=== PATIENT | female | born 1975 | race Caucasian/White ===

== ENCOUNTER 2022-03-31 13:24 | Outpatient (REF) | payer OTHER, SELFPAY ==
--- NOTE | ~2022-03-31 | XR_ITS ---
EXAMINATION: XR SACROILIAC JOINTS CLINICAL INFORMATION: Pain COMPARISON: None TECHNIQUE: 3 views of the sacroiliac joints FINDINGS: Bones and soft tissues are normal. No fracture. Alignment is anatomic. Sacroiliac joint spaces are well-maintained without erosions or surrounding sclerosis. XR/XR sacroiliac joint min 3V IMPRESSION: Normal sacroiliac joints.
--- NOTE | ~2022-03-31 | XR_ITS ---
EXAMINATION: XR HIP, LEFT CLINICAL INFORMATION: Pain COMPARISON: None TECHNIQUE: Two views of the left hip. FINDINGS: Bones and soft tissues are normal. No fracture. Alignment is anatomic. Hip joint space is maintained. XR/XR hip LT w PEL1V IMPRESSION: Normal left hip.
== END 2022-03-31 13:25 | disposition home or self-care (01) ==
LOC: HO.XRAY 13:24
PROVIDERS: PCP Internal Medicine; Visit Provider Nurse Practitioner Family
DX: M46.1 Sacroiliitis, not elsewhere classified (principal); M53.3 Sacrococcygeal disorders, not elsewhere classified; M25.552 Pain in left hip
CPT/HCPCS: 72202; 73502

== ENCOUNTER 2022-12-08 12:31 | Emergency (ER) | payer OTHER, SELFPAY ==
--- NOTE | ~2022-12-08 | XR_ITS ---
EXAMINATION: XR CHEST CLINICAL INFORMATION: Chest pain COMPARISON: None available. TECHNIQUE: 2 views of the chest were obtained. FINDINGS: No significant abnormality is noted involving the heart, lungs, mediastinum, bony thorax or soft tissues. XR/XR chest 2V IMPRESSION: Unremarkable examination.
--- NOTE | 2022-12-08 12:33 | ECG_ITS ---
Test Reason : chest pain Blood Pressure : / mmHG Vent. Rate : 083 BPM Atrial Rate : 083 BPM P-R Int : 146 ms QRS Dur : 076 ms QT Int : 370 ms P-R-T Axes : 031 -08 -08 degrees QTc Int : 434 ms Normal sinus rhythm with sinus arrhythmia Minimal voltage criteria for LVH, may be normal variant ( R in aVL ) Borderline ECG No previous ECGs available Referred By: Deandra Caicedo Electronically Signed By:Curt Alas
[2022-12-08 12:42] VITALS: BP 151/87; PULSE 90; RESP 18; TEMP 36.5; O2SAT 99; BMI 36.4
--- NOTE | 2022-12-08 12:42 | ED_ITS ---
HPI - Chest Pain General Chief Complaint: General Medical Stated Complaint: chest pain, right arm numbness Time Seen by Provider: 12/08/22 17:38 Source: patient Mode of arrival: ambulatory Limitations: no limitations History of Present Illness HPI narrative: Patient comes to the emergency room complaining of left-sided hip pain and also complaining of right-sided chest pain radiating to the arm. Patient states it started approximately 20 hours ago. Patient denies any injury. Patient states that yesterday she had a sudden onset of sharp chest pain on the right side. Patient states she thought that she broke her report she was cooking dinner. Since then, patient has been having the pain on the right side. Related Data Home Medications Medication Instructions Recorded Confirmed ibuprofen 200 mg tablet 400 mg PO Q8H PRN 12/17/21 03/31/22 Previous Rx's Medication Instructions Recorded diclofenac potassium 50 mg tablet 50 mg PO BID PRN pain 30 days #60 03/31/22 tabs tizanidine 4 mg tablet 4 mg PO BID PRN for muscle spasm 04/23/22 #60 tabs Allergies Allergy/AdvReac Type Severity Reaction Status Date / Time No Known Allergies Allergy Verified 04/20/22 08:35 Review of Systems Review of Systems: Constitutional : No Weight loss, No Fever, No Chills, No Night Sweats, No Fatigue, No Malaise ENT/Mouth : No Hearing loss, No Ear Pain, No Nasal Congestion, No Sinus Pain, No Hoarseness, No sore throat, No Rhinorrhea, No Swallowing Difficulty Eyes: No Eye Pain, No Swelling, No Redness, No Foreign Body, No Discharge, No Vision Changes Cardiovascular : Complaining of right-sided intercostal pain,No SOB, No Dyspnea on Exertion, No Orthopnea, No Edema, No Palpitations Respiratory : No Cough, No Sputum, No Wheezing, No Smoke Exposure, No Dyspnea Gastrointestinal : No Nausea, No Vomiting, No Diarrhea, No Constipation, No abdominal Pain, No Hematochezia, No Melena Genitourinary : no irregular bleeding, No Dysuria, No Urinary Frequency, No Hematuria, No Urinary Incontinence, No Urgency, No Flank Pain, No Urinary Flow Changes, No Hesitancy Musculoskeletal : Complaining of chronic left solid hip pain, No Myalgias, No Joint Swelling Skin : No Skin Lesions, No rash Neuro : No Weakness, No Numbness, No Paresthesias, No Loss of Consciousness, No Dizziness, No Headache Psych : No Anxiety/Panic, No Depression, No SI/HI/AH/VH, No Social Issues, Heme/Lymph: No Bruising, No Bleeding,No Lymphadenopathy Endocrine : No Polyuria, No Polydipsia, No Temperature Intolerance [facility] Social History Social History (Updated 04/20/22 @ 08:36 by GIAN Ward) Alcohol intake: current Alcohol intake frequency: holidays/special occasions only Patient Tobacco Use Status: Never used Tobacco Physical Exam Vital Signs: Vital Signs: Last Vital Signs Temp 97.7 F 12/08/22 12:42 Pulse 90 12/08/22 12:42 Resp 18 12/08/22 12:42 BP 151/87 H 12/08/22 12:42 Pulse Ox 99 12/08/22 12:42 O2 Del Method Room Air 12/08/22 12:42 BMI result Body Mass Index 36.4 Const: Other: Appearance: Alert. Oriented X3. No acute distress. Eyes: Pupils equal, round and reactive to light. ENT: Pharynx normal. Neck: Normal inspection. Neck supple. No lymph nodes noted. No crepitus CVS: Normal heart rate and rhythm. Pulses normal. Normal S1 and S2 Respiratory: No respiratory distress. Breath sounds normal. No Wheezing. No rales Abdomen: Soft and nontender. No rigidity. No distention. Skin: Skin warm and dry. Normal skin color. Normal skin turgor. Extremities: No lower extremity edema. No Lacerations. No Rash Neuro: Oriented X 3. No motor deficit. No sensory deficit. Moving all extremities. No slurred speech. CN 2 through 12 grossly intact Psych: calm, cooperative, normal affect Course Course Course Narrative: This is a rapid medical exam. deferred additional HPI, ROS, PE to primary provider. 47 yo female with history of back pain here with complaints of right chest pain, pleuritic in nature with numbness/discomfort in the right arm since yesterday. NO SOB, no leg pain/swelling, fevers. NO recent travel, no recent surgery, no HRT/estrogen use. No personal or family history of DVT/PE. WIll obtain EKG, CXR, labs. VSS Medical Decision Making Medical Decision Making MDM Narrative: -initially when patient came in, patient stated that she had chest pain radiating towards the right arm, observe patient was considered. -my interpretation of EKG: Normal sinus rhythm, heart rate 83, Mrs. Segment depression or elevation, nonspecific T-wave inversion in lead 3, QTC 434 -troponin 1. Is negative, patient has been symptomatic for 20+ hours, chest pain unlikely to be of cardiac etiology, most likely musculoskeletal. -patient had mild reproducible chest pain on palpation on the right side. -patient requesting something stronger than ibuprofen but not on narcotic for the pain. Patient given 1 dose of IM Toradol for costochondritis -I discussed with the patient that if she keeps having chest pain, she can follow up with the primary care physician and be referred for a cardiac stress test Differential Diagnosis Differential Diagnoses: The differential diagnosis associated with the presentation includes (ACS, musculoskeletal pain, costochondritis) Admission/Observation Consideration of admission/observation: Escalation of care including admission/observation considered Lab Data MDM Lab Attestation statement: I reviewed the patient's lab results. 12/08/22 14:25 12/08/22 14:25 Labs: Lab Results 12/08/22 12/08/22 12/08/22 Range/Units 14:25 14:25 14:25 WBC 8.8 (4.8-10.8) X10*3/uL RBC 4.84 (4.20-5.50) X10*6/uL Hgb 13.3 (12.0-16.0) g/dl Hct 40.5 (37.0-47.0) % MCV 83.7 (80.0-98.0) fL MCH 27.5 (27.0-33.0) pg MCHC 32.8 (31.0-35.0) g/dl RDW 12.9 (11.0-16.0) % Plt Count 265 (160-400) X10*3/uL MPV 10.1 (9.4-12.3) fL Immature Gran % (Auto) 0.6 H (0.0-0.4) % Neut % (Auto) 59.9 (45-73) % Lymph % (Auto) 28.0 (20-40) % Hemphill % (Auto) 7.8 (2-11) % Eos % (Auto) 3.4 (0-4) % Baso % (Auto) 0.3 (0-2) % Lymph # (Auto) 2.5 (1.2-4.9) X10*3/uL Hemphill # (Auto) 0.7 (0.1-1.2) X10*3/uL Eos # (Auto) 0.3 (0.0-0.4) X10*3/uL Baso # (Auto) 0.0 (0.0-0.2) X10*3/uL Abs Immat Gran (auto) 0.05 H (0.00-0.03) X10*3/uL Absolute Neuts (auto) 5.3 (2.0-8.3) x10*3/uL Absolute Nucleated RBC 0.000 (0.0-0.012) X10*3/uL Nucleated RBC % (auto) 0.0 (0.0-0.2) /100WBC PT 11.9 (10.0-13.1) SEC INR 1.0 (0.9-1.1) Sodium 140 (135-145) mmol/L Potassium 4.3 (3.3-5.1) mmol/L Chloride 109 H (96-108) mmol/L Carbon Dioxide 24 (22-29) mmol/L Anion Gap 11 L (12-20) BUN 14 (9-16) mg/dL Creatinine 0.61 (0.5-1.4) mg/dL Estim Creat Clear Calc 104.3 Estimated GFR > 60 Random Glucose 115 (60-115) mg/dL Calcium 9.2 (8.4-10.2) mg/dL Total Bilirubin 0.5 (0.0-1.0) mg/dL Direct Bilirubin 0.2 (0.0-0.5) mg/dL AST 12 (5-31) U/L ALT 15 (0-31) U/L Alkaline Phosphatase 68 (39-117) U/L Troponin I High Sens (<3.5-17.0) ng/L Total Protein 6.9 (6.5-8.0) g/dL Albumin 4.1 (3.5-5.0) g/dL 12/08/22 Range/Units 14:25 WBC (4.8-10.8) X10*3/uL RBC (4.20-5.50) X10*6/uL Hgb (12.0-16.0) g/dl Hct (37.0-47.0) % MCV (80.0-98.0) fL MCH (27.0-33.0) pg MCHC (31.0-35.0) g/dl RDW (11.0-16.0) % Plt Count (160-400) X10*3/uL MPV (9.4-12.3) fL Immature Gran % (Auto) (0.0-0.4) % Neut % (Auto) (45-73) % Lymph % (Auto) (20-40) % Hemphill % (Auto) (2-11) % Eos % (Auto) (0-4) % Baso % (Auto) (0-2) % Lymph # (Auto) (1.2-4.9) X10*3/uL Hemphill # (Auto) (0.1-1.2) X10*3/uL Eos # (Auto) (0.0-0.4) X10*3/uL Baso # (Auto) (0.0-0.2) X10*3/uL Abs Immat Gran (auto) (0.00-0.03) X10*3/uL Absolute Neuts (auto) (2.0-8.3) x10*3/uL Absolute Nucleated RBC (0.0-0.012) X10*3/uL Nucleated RBC % (auto) (0.0-0.2) /100WBC PT (10.0-13.1) SEC INR (0.9-1.1) Sodium (135-145) mmol/L Potassium (3.3-5.1) mmol/L Chloride (96-108) mmol/L Carbon Dioxide (22-29) mmol/L Anion Gap (12-20) BUN (9-16) mg/dL Creatinine (0.5-1.4) mg/dL Estim Creat Clear Calc Estimated GFR Random Glucose (60-115) mg/dL Calcium (8.4-10.2) mg/dL Total Bilirubin (0.0-1.0) mg/dL Direct Bilirubin (0.0-0.5) mg/dL AST (5-31) U/L ALT (0-31) U/L Alkaline Phosphatase (39-117) U/L Troponin I High Sens < 2.7 (<3.5-17.0) ng/L Total Protein (6.5-8.0) g/dL Albumin (3.5-5.0) g/dL Independent Interpretation I performed an independent interpretation of an: Plain X-Ray (My interpretation of chest x-ray: No pneumonia,No fracture ribs) Radiology Impression Discussion of test interpretation with radiology: I have reviewed the rad iologist's reading. Radiologist Impression: FINDINGS: No significant abnormality is noted involving the heart, lungs, mediastinum, bony thorax or soft tissues. XR/XR chest 2V IMPRESSION: Unremarkable examination. Critical Care Time Critical Care Time Critical Care Time: Yes Total Critical Care Time: 30 Attestation: I have personally provided critical care time. Time includes review of lab data, radiology results, discussion with consultants, and monitoring for potential decompensation. Intervention performed as documented. Discharge Plan Discharge Clinical Impression: Atypical chest pain Patient Disposition: Home, Self-Care Instructions: Chest Pain (ED) Additional Instructions: Please follow-up with your primary care physician tomorrow. If you have any worsening or new symptoms, please return to the emergency room or call 911 Prescriptions: No Action tizanidine 4 mg tablet 4 mg PO BID PRN (Reason: for muscle spasm) Qty: 60 0RF diclofenac potassium 50 mg tablet 50 mg PO BID PRN (Reason: pain) 30 Days Qty: 60 0RF Rx Instructions: Take it with food. Avoid other NSAIDs. ibuprofen 200 mg tablet 400 mg PO Q8H PRN
[2022-12-08 14:29] LABS: MANUAL DIFF FLAG NO
[2022-12-08 14:37] LABS: Basophils Percent Auto 0.3 % (0-2); Eosinophils Absolute Auto 0.3 X10*3/uL (0.0-0.4); Eosinophils Percent Auto 3.4 % (0-4); Hematocrit 40.5 % (37.0-47.0); Hemoglobin 13.3 g/dl (12.0-16.0); Imm Gran Abs Auto 0.05 X10*3/uL (0.00-0.03); Imm Gran Pct Auto 0.6 % (0.0-0.4); Lymphocytes Absolute Auto 2.5 X10*3/uL (1.2-4.9); Mean Corpuscular HGB Conc 32.8 g/dl (31.0-35.0); Mean Corpuscular Hemoglobin 27.5 pg (27.0-33.0); Mean Corpuscular Volume 83.7 fL (80.0-98.0); Mean Platelet Volume 10.1 fL (9.4-12.3); Monocytes Absolute Auto 0.7 X10*3/uL (0.1-1.2); Monocytes Percent Auto 7.8 % (2-11); Neutrophils Absolute Auto 5.3 x10*3/uL (2.0-8.3); Neutrophils Percent Auto 59.9 % (45-73); Platelet Count 265 X10*3/uL (160-400); Red Blood Count 4.84 X10*6/uL (4.20-5.50); Red Cell Distribution Width 12.9 % (11.0-16.0); White Blood Count 8.8 X10*3/uL (4.8-10.8)
[2022-12-08 14:39] LABS: Prothrombin Time 11.9 SEC (10.0-13.1)
[2022-12-08 14:47] LABS: Alanine Aminotransferase 15 U/L (0-31); Albumin Level 4.1 g/dL (3.5-5.0); Alkaline Phosphatase 68 U/L (39-117); Anion Gap 11 (12-20); Aspartate Amino Transferase 12 U/L (5-31); Bilirubin Direct 0.2 mg/dL (0.0-0.5); Bilirubin Total 0.5 mg/dL (0.0-1.0); Blood Urea Nitrogen 14 mg/dL (9-16); Calcium 9.2 mg/dL (8.4-10.2); Carbon Dioxide 24 mmol/L (22-29); Chloride 109 mmol/L (96-108); Creatinine Clr Calc Pharmacy 104.3; Estimated Glomerular Filt Rate > 60; Glucose Random 115 mg/dL (60-115); Potassium 4.3 mmol/L (3.3-5.1); Sodium 140 mmol/L (135-145); Total Protein 6.9 g/dL (6.5-8.0)
[2022-12-08 14:55] LABS: Troponin-I High Sensitivity < 2.7 ng/L (<3.5-17.0)
[2022-12-08] MEDS: Ketorolac Tromethamine 30 MG/ML VIAL IM (19:24)
== END 2022-12-08 20:06 | disposition home or self-care (01) ==
PROVIDERS: Nurse Practitioner Family; Emergency Provider Emergency Medicine; PCP Internal Medicine
DX: R07.89 Other chest pain (principal); M25.552 Pain in left hip; R20.0 Anesthesia of skin; M25.511 Pain in right shoulder; Z79.899 Other long term (current) drug therapy
CPT/HCPCS: 36415; 71046; 80048; 80076; 84484; 85025; 85610; 93005; 96372; 99284; J1885

== ENCOUNTER → 2022-12-08 12:33 | Outpatient (BNV) | payer OTHER, SELFPAY | PROVIDERS: Emergency Provider Emergency Medicine; PCP Internal Medicine; Visit Provider Internal Medicine Cardiovascular Disease | DX: I49.9 Cardiac arrhythmia, unspecified (principal) | CPT/HCPCS: 93010 ==

== ENCOUNTER 2023-01-29 14:35 | Outpatient (AMB) | payer OTHER, SELFPAY ==
--- NOTE | 2023-01-29 14:37 | MHC.OFFVIS ---
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 She was last seen in our office in March 2022. Patient continues to endorse left sided low back pain that wraps around her left buttock and into left lateral hip and occasionally into her groin. Pain increases with wtih walking, changing positions, bending, twisting, movements, prolonged sitting. She cannot sleep on her left side due to pain. Occasionally she will get burning and tingling down her left lateral leg as well. Patient reports she recently completed lumbar spine MRI at [facility], report is noted below and had neurosurgical evaluation with Dr. Romero and Irlanda Dowell PA-C at [facility] and was recommended to undergo left sacroiliac joint or left facet injection. Patient reports she is hesitant towards interventional treatments but due to chronic and worsening pain she is willing to undergo left SIJ injection. Patient has completed multiple rounds of physical therapy, chiropractic adjustments and performs daily HEP with stretching. Patient reports she is seeing district extension service agent now and has completed 4 sessions of acupuncture with temporary and minimal improvement in her symptoms. She also tried gabapentin and tizanidine but had to stop due to insomnia with gabapentin and no effect with muscle relaxant. She continues to take Ibuprofen and states this has been minimally helpful. She has stopped taking diclofenac potassium as this has been ineffective. Denies any fever, chills, abdominal or groin pain, bowel dysfunction or saddle anesthesia. Patient reports history of urinary incontinence and follows her ObGyn provider with discussion of a PV sling procedure to lift her bladder. PRIOR: Patient presents today via telehealth encounter to discuss xray results and response to medications. Patient continues to endorse left sided lower back pain with radiation to her left lateral hip and left buttock. Denies groin pain. She states prolonged sitting and sitting and some of the sleeping positions. Patient reports she is able to sleep better with tizanidine at night without noted side effects. She also reports partial pain relief with diclofenac sodium and has been taking it with good tolerance without side effects. Xray results for left hip and SIJ were normal. However, patient had positive testing with 3-4 provocative maneuvers with previous office visits. Patient was rescheduled for diagnostic SIJ injection which was denied again. Peer to Peer Review was conducted on 04/09/[address] Cervantes and left diagnostic SIJ injection was approved. Reference #[id number]. PRIOR: Patient returns today for follow up for worsening of left sided lower back pain. She was initially seen by Tonia ESCAMILLA in November and was scheduled for diagnostic SIJ injection which unfortunately has been denied. Patient continues to endorse low back pain that travels in her left upper buttock and into left groin and intermittently into her left lower extremity laterally and anteriorly up to the knee level. She reports numbness and tingling in her left lateral leg, groin and rarely in her left foot. Patient reports she has a pending neurosurgical evaluation by Dr. Welsh at [facility] in May,. She reports her pain is increased with daily activities, prolonged walking, sexual activity, or laying on her back. Patient reports she continues to have difficulty to properly care for herself and cannot wipe herself properly after bowel movements due to pain exacerbation with bending forward and twisting. She is concerned about her weight gain due to decreased daily activities and pain. On exam today, patient has significant exacerbation of left sacroiliac joint pain. She has negative SLR bilaterally and only reports mild stretching discomfort with dorsiflexion on the left. Patient is interested to proceed with diagnostic left SIJ injection for potential longer term pain relief, including therapeutic injections, neuromodulation and RFA procedures. Patient denies any fever, abdominal pain, dizziness, weakness, bowel or bladder incontinence or saddle anesthesia. PRIOR 12/17/21 Tonia ESCAMILLA: Fouzia a pleasant 46 year old female who presents today to the office today with complaints of low back pain. She states the pain started 5-7 years ago without any inciting events and has progressively worsened over the past two years. She reports the pain starts in the left side of her low back and radiates into the left hip/groin with intermittent numbness. She also reports occasional radiation down LLE into foot with associated pins/needles sensation. Although the symptoms are always on the left, she does report intermittent symptoms of right sided lower back pain. She denies any weakness, bowel/bladder dysfunction. She was referred to [facility] who offered some type of injection but patient declined at the time. She recently had a lumbar spine MRI, report scanned into chart. No evidence of nerve root impingement, overt foraminal/central canal stenosis, but there was a disc protrusion with abutment of the left L4 nerve root. She reports pain onset was gradual, constant and rates the pain a 5-8/10. She states the pain is interfering with sleep, activities of daily living and they cannot function normally. The patient reports the pain in terms of tissue damage as throbbing, jumping, stabbing, cramping, burning as well as heavy, tiring and radiating. The pain is exacerbated by prolonged sitting,standing as well as activity. She notes relief with recumbency. She has been taking ibuprofen with partial relief. She has also tried tizanidine, naprosyn, heat/ice and tylenol with minimal effect. With the worsening of her pain she reports weight gain due to limitations with activity. She was previously very active at the gym as well as using medical weight management, losing a total of 30 lbs. Unfortunately, due to her pain she gained the weight back despite continuing with yoga/pilates like exercises. She has attempted chiropractic manipulation as well as physical therapy and massage in the past with partial alleviation in symptoms. Denies any acupuncture. Denies any previous back injections or surgery. Her past medical history is significant for hyperlipidemia and vitamin D deficiency. [facility] Social History Alcohol intake: current Alcohol intake frequency: holidays/special occasions only Patient Tobacco Use Status: Never used Tobacco Review of Systems Const All systems reviewed & are unremarkable except as noted in HPI and below Physical Exam Vital Signs: Last Vital Signs Pulse 79 01/29/23 14:43 BP 138/64 01/29/23 14:43 Pulse Ox 100 01/29/23 14:43 Oxygen Delivery Method Room Air 01/29/23 14:43 BMI result Body Mass Index 36.8 General: Appears afebrile. Alert and oriented. Mood and affect appropriate. Follows and participates in conversation appropriately. Respiratory effort is unlabored. Able to transition from sit to stand unassisted. Ambulates with bilaterally normal heel strike and toe off. Back/Spine/Pelvis Other: Mildly antalgic gait without limping. Can flex forward to 65-75degrees and extend to 5-10 degrees before experiencing lumbar pain. Increased pain with lumbar extension. Demonstrates 5/5 strength of quadriceps bilaterally as well as flexion/dorsiflexion of bilateral feet against resistance. 2+ pedal pulses bilaterally. Straight leg rise with dorsiflexion negative bilaterally. +2 DTR intact and symmetrical. Naif's positive bilaterally. Babar test, Stinchfield test, Gaenslen, Pelvic compression test are positive on the left. Facet loading test negative bilaterally. Mild left groin pain with left hip I/E rotation. No tenderness in GTB bilaterally. Valsalva maneuver negative. No clonus. Cervical Spine: cervical ROM normal and No Cervical spine tenderness Thoracic/Lumbar Spine: thoracic and lumbar spine normal to inspection, No Thoracic/lumbar spine scar(s), Lasegue's sign negative, straight leg raise negative bilaterally, pain with thoraco-lumbar ROM, paraspinal muscle tenderness, No thoracic spinal tenderness and lumbar spinal tenderness (L4-S1) Pelvis: buttock tenderness on the left Sacroiliac joints: on the right nontender and on the left tender to palpation Results Reviewed Results Reviewed: MR LUMBAR SPINE WITHOUT CONTRAST 12/23/22 CLINICAL INFORMATION: Sciatica. FINDINGS: There is grade 1 degenerative anterolisthesis of L4 on L5. Lumbar alignment is otherwise maintained. There is no bone marrow edema. There are no acute fractures. Vertebral body heights are preserved. There is disc desiccation at the L1-L2 and L4-L5 levels. Conus terminates at the L1 level. There are no significant extraspinal soft tissue findings. The L1-L2, L2-L3, and L3-L4 disc contours are normal. There is no central canal stenosis and there is no foraminal stenosis at these levels. L4-L5: Grade 1 degenerative anterolisthesis. Severe bilateral facet arthropathy and ligamentum flavum thickening. Findings in concert result in mild central canal stenosis and left subarticular zone stenosis with mass effect on the traversing left L5 nerve root. Small degenerative cyst within the left L5 superior articular process. Mild bilateral foraminal encroachment. Right lateral annular fissure. There is some haziness within the left neural foraminal fat at L4-L5 on sagittal image 6 of series 6 that could reflect inflammation or disc material, partially inseparable from the exiting left L4 nerve root. L5-S1: Small annular disc bulge and mild bilateral facet arthropathy. No central canal stenosis and no foraminal stenosis. Right lateral annular fissure. IMPRESSION: - At L4-L5, there is grade 1 degenerative anterolisthesis in the setting of advanced bilateral facet arthropathy that along with additional multifactorial degenerative changes result in mild central canal stenosis and left subarticular zone stenosis with mass effect on the traversing left L5 nerve root. There is some haziness within the left neural foraminal fat at L4-L5 on sagittal image 6 of series 6 that could reflect inflammation or disc material, partially inseparable from the exiting left L4 nerve root. - There are right lateral annular fissures at L4-L5 and L5-S1. Assessment & Plan Assessment & Plan (1) Sacroiliitis: Code(s): M46.1 - Sacroiliitis, not elsewhere classified (2) Sacroiliac joint pain: Code(s): M53.3 - Sacrococcygeal disorders, not elsewhere classified (3) Degeneration of L4-L5 intervertebral disc: Code(s): M51.36 - Other intervertebral disc degeneration, lumbar region (4) Facet arthropathy, lumbosacral: Code(s): M47.817 - Spondylosis without myelopathy or radiculopathy, lumbosacral region (5) Muscle spasm: Code(s): M62.838 - Other muscle spasm Plan Proceed with Diagnostic Left Sacroiliac Joint injection with local and fluoroscopy as previously planned. If SIJ injection provides her no pain relief, will plan for diagnostic left L3-L4 DR L5 MBB as next steps. Script provided for Meloxicam, patient will stop Ibuprofen and diclofenac potassium. Monitor for any side effects. Patient is aware to take meloxicam as needed only and with food and full glass of water. Continue acupuncture, daily stretching exercises, weight loss, and good posture. All questions and concerns have been answered and patient agreed with the plan. Follow up after injections and sooner if needed. Anticoagulation: Patient not on anticoagulant Justification for interventional therapy: ? Patient with average pain > 6/10 ? Patient has exhausted conservative therapy, NSAIDs, physical therapy, chiropractic manipulation, acupuncture, HEP The risks, consequences, alternatives, and benefits of various treatment options were discussed with the patient in great detail, including conservative management, injections and procedures. Medications: New meloxicam Take it with food and full glass of water. Avoid other NSAIDs. 15 mg PO DAILY 30 tabs 0RF pain M46.1 - Sacroiliitis, not elsewhere classified, M47.817 - Spondylosis without myelopathy or radiculopathy, lumbosacral region, M51.36 - Other intervertebral disc degeneration, lumbar region, M53.3 - Sacrococcygeal disorders, not elsewhere classified Discontinued diclofenac potassium Take it with food. Avoid other NSAIDs. Discontinued Reason: Patient Completed Course 50 mg PO BID 30 days PRN 60 tabs 0RF pain M46.1 - Sacroiliitis, not elsewhere classified, M53.3 - Sacrococcygeal disorders, not elsewhere classified, M54.16 - Radiculopathy, lumbar region tizanidine Discontinued Reason: Patient no longer taking 4 mg PO BID PRN 60 tabs 0RF for muscle spasm M51.36 - Other intervertebral disc degeneration, lumbar region, M62.838 - Other muscle spasm Coding Level of Care Code Est Pt Level 4 (73526) Diagnoses Sacroiliitis M46.1 Sacroiliac joint pain M53.3 Degeneration of L4-L5 intervertebral disc M51.36 Facet arthropathy, lumbosacral M47.817 Muscle spasm M62.838
[2023-01-29 14:43] VITALS: BP 138/64; PULSE 79; O2SAT 100; BMI 36.8
== END 2023-01-29 15:02 | disposition home or self-care (01) ==
PROVIDERS: PCP Internal Medicine; Visit Provider Nurse Practitioner Family
DX: M46.1 Sacroiliitis, not elsewhere classified (principal); M53.3 Sacrococcygeal disorders, not elsewhere classified; M51.36 Other intervertebral disc degeneration, lumbar region; M47.817 Spondylosis without myelopathy or radiculopathy, lumbosacral region; M62.838 Other muscle spasm
CPT/HCPCS: 99214

== ENCOUNTER → 2023-01-29 14:35 | Outpatient (BNVA) | payer OTHER, SELFPAY | PROVIDERS: PCP Internal Medicine; Visit Provider Nurse Practitioner Family ==

== ENCOUNTER 2023-02-16 05:59 | Outpatient (REF) | payer OTHER, SELFPAY ==
--- NOTE | ~2023-02-16 | FL_ITS ---
EXAMINATION: XR FLUOROSCOPY WITH IMAGES CLINICAL INFORMATION: Sacrococcygeal disorders, not elsewhere classified. Left SI joint. COMPARISON: None available. TECHNIQUE: Fluoroscopy Supervised By: Dr. Vish Layne. Fluoroscopy Time: 0.1 minute. Cumulative Dose: 2.10 mGy. DAP: 0.0364 Gycm2. Images: 1. FINDINGS: Images demonstrate needle placement and contrast injection of the left sacroiliac joint. FL/FL guidance in treatment room IMPRESSION: Fluoroscopy guidance for left sacroiliac joint injection
== END 2023-02-16 06:00 | disposition home or self-care (01) ==
LOC: CF 05:59
PROVIDERS: Visit Provider Anesthesiology
DX: M53.3 Sacrococcygeal disorders, not elsewhere classified (principal)
CPT/HCPCS: 27096

== ENCOUNTER 2023-02-16 08:40 | Outpatient (AMB) | payer OTHER, SELFPAY ==
[2023-02-16 09:00] VITALS: BP 134/82; PULSE 69; RESP 16; O2SAT 96; BMI 36.8
--- NOTE | 2023-02-16 09:00 | A.OFFVIS_ITS ---
Intake Vital Signs 02/16/23 09:00 02/16/23 09:42 Height 4 ft 11 in 4 ft 11 in Weight 182 lb 182 lb BMI 36.8 36.8 BP 134/82 120/78 Blood Pressure Location Rt brachial Lt brachial Position Sitting Sitting Respiration 16 16 Pulse 69 70 Pulse Source Pulse Oximeter Pulse Oximeter Pulse Oximetry (%) 96 98 Oxygen Delivery Method Room Air Room Air Comment pre-op post-op Intake Visit Reasons: L DX SIJ INJ/LOCAL Allergies No Known Allergies Allergy (Verified 02/16/23 09:01) PFSH Social History Alcohol intake: current Alcohol intake frequency: holidays/special occasions only Patient Tobacco Use Status: Never used Tobacco Physical Exam Vital Signs: Last Vital Signs Pulse 69 02/16/23 09:00 Resp 16 02/16/23 09:00 BP 134/82 02/16/23 09:00 Pulse Ox 96 02/16/23 09:00 Oxygen Delivery Method Room Air 02/16/23 09:00 BMI result Body Mass Index 36.8 Assessment & Plan Assessment & Plan (1) Sacroiliitis: Code(s): M46.1 - Sacroiliitis, not elsewhere classified (2) Sacroiliac joint pain: Code(s): M53.3 - Sacrococcygeal disorders, not elsewhere classified Plan: Left diagnostic sacroiliac joint injection Informed consent was explained thoroughly to the patient. All questions about benefits and risks for the procedure were answered. Patient came to the operating room and was positioned prone on the operating table with the pillow under the pelvis. [employer] monitors were applied and patient was deeply sedated. Time out was performed delineating name and of the patient, allergies and the nature of the procedure. The lower back and buttocks of the patient were prepped with ChloraPrep prepped and draped with sterile utility towels. C-arm was brought over the operating field and sq picture of patient's pelvis was demonstrated on the screen. For the left joint tilting C-arm contralateral to the site of the joint the most p osterior portion of the joints was superimposed with anterior silhouette of the joint. Skin was injected in the projection of the joint slightly medial to the location of the joint with 25 gauge 1/2 inch needle using local lidocaine 2% .After that 22 gauge 3 and 1/2 inch needle was driven to the right joint in tunnel vision fashion. When needle entered the joint capsule injection of the contrast was performed demonstrating intra-articular and minimally periarticular spread of the contrast. After that 4 cc. of ropivacaine 0.5% was injected into the joint. Upon completion of the injections the needle was removed Sterile dressing was applied. Upon completion of the injection patient was taken outside of the operating room to the recovery room where recovered uneventfully. (3) Degeneration of L4-L5 intervertebral disc: Code(s): M51.36 - Other intervertebral disc degeneration, lumbar region (4) Facet arthropathy, lumbosacral: Code(s): M47.817 - Spondylosis without myelopathy or radiculopathy, lumbosacral region (5) Muscle spasm: Code(s): M62.838 - Other muscle spasm Plan Proceed with Diagnostic Left Sacroiliac Joint injection with local and fluoroscopy as previously planned. If SIJ injection provides her no pain relief, will plan for diagnostic left L3-L4 DR L5 MBB as next steps. Script provided for Meloxicam, patient will stop Ibuprofen and diclofenac potassium. Monitor for any side effects. Patient is aware to take meloxicam as needed only and with food and full glass of water. Continue acupuncture, daily stretching exercises, weight loss, and good posture. All questions and concerns have been answered and patient agreed with the plan. Follow up after injections and sooner if needed. Anticoagulation: Patient not on anticoagulant Justification for interventional therapy: ? Patient with average pain > 6/10 ? Patient has exhausted conservative therapy, NSAIDs, physical therapy, chiropractic manipulation, acupuncture, HEP The risks, consequences, alternatives, and benefits of various treatment options were discussed with the patient in great detail, including conservative management, injections and procedures. Orders: Orders FL guidance in treatment room Today M53.3 - Sacrococcygeal disorders, not elsewhere classified Coding Level of Care Code Procedure Only Diagnoses Sacroiliitis M46.1 Sacroiliac joint pain M53.3 Degeneration of L4-L5 intervertebral disc M51.36 Facet arthropathy, lumbosacral M47.817 Muscle spasm M62.838
[2023-02-16 09:42] VITALS: BP 120/78; PULSE 70; RESP 16; O2SAT 98; BMI 36.8
== END 2023-02-16 09:57 | disposition home or self-care (01) ==
LOC: HO.PMCPRC 08:40
PROVIDERS: PCP Internal Medicine; Visit Provider Anesthesiology
DX: M46.1 Sacroiliitis, not elsewhere classified (principal)
CPT/HCPCS: 27096

== ENCOUNTER 2023-02-18 09:18 | Outpatient (AMB) | payer OTHER, SELFPAY ==
--- NOTE | 2023-02-18 09:20 | A.OFFVIS_ITS ---
Intake Vital Signs 02/18/23 09:25 Height 4 ft 11 in Weight 180 lb 3 oz BMI 36.4 BP 163/79 H Blood Pressure Location Rt brachial Position Sitting Pulse 79 Pulse Source Pulse Oximeter Pulse Oximetry (%) 97 Oxygen Delivery Method Room Air Intake Visit Reasons: L DX SIJ INJ 02/16/23 Intake Note: Pain today 07/03 Prorate Clerk Required: No Accompanied by: Self / Same As Patient Allergies No Known Allergies Allergy (Verified 02/16/23 09:01) HPI HPI Comments History of Present Illness Details Patient presents today to assess response to Left Diagnostic Sacroiliac Joint Injection on 02/16/[address] Layne. Patient reports 90% pain relief for 1.5 days and ongoing 80% pain relief with gradual return of her baseline pain. Patient is very content with outcome of diagnostic SIJ injection as this has provided her significant improvement in her daily activities, functioning, mobility and especially her sleep. Patient report she was able to sleep through the night and had no pain with repositioning during sleep. Patient is interested to proceed with Therapeutic Left SIJ injections. We also discussed longer term treatments with neuromodulation with PNS trial vs RFA. Denies any recent cough, cold, infection, fever or other significant changes in medical history since last office visit. Patient denies any bladder or bowel incontinence or saddle anesthesia. Past Procedures: 02/16/23: Left Diagnostic SIJ injection- 90% pain relief for 1.5 days PRIOR: Patient presents today for follow up for ongoing chronic low back pain on left side. She was last seen in our office in March 2022. Patient continues to endorse left sided low back pain that wraps around her left buttock and into left lateral hip and occasionally into her groin. Pain increases with wtih walking, changing positions, bending, twisting, movements, prolonged sitting. She cannot sleep on her left side due to pain. Occasionally she will get burning and tingling down her left lateral leg as well. Patient reports she recently completed lumbar spine MRI at [facility], report is noted below and had neurosurgical evaluation with Dr. Romero and Irlanda Dowell PA-C at [facility] and was recommended to undergo left sacroiliac joint or left facet injection. Patient reports she is hesitant towards interventional treatments but due to chronic and worsening pain she is willing to undergo left SIJ injection. Patient has completed multiple rounds of physical therapy, chiropractic adjustments and performs daily HEP with stretching. Patient reports she is seeing precision aircraft structure assembler now and has completed 4 sessions of acupuncture with temporary and minimal improvement in her symptoms. She also tried gabapentin and tizanidine but had to stop due to insomnia with gabapentin and no effect with muscle relaxant. She continues to take Ibuprofen and states this has been minimally helpful. She has stopped taking diclofenac potassium as this has been ineffective. Denies any fever, chills, abdominal or groin pain, bowel dysfunction or saddle anesthesia. Patient reports history of urinary incontinence and follows her ObGyn provider with discussion of a PV sling procedure to lift her bladder. PRIOR: Patient presents today via telehealth encounter to discuss xray results and response to medications. Patient continues to endorse left sided lower back pain with radiation to her left lateral hip and left buttock. Denies groin pain. She states prolonged sitting and sitting and some of the sleeping positions. Patient reports she is able to sleep better with tizanidine at night without noted side effects. She also reports partial pain relief with diclofenac sodium and has been taking it with good tolerance without side effects. Xray results for left hip and SIJ were normal. However, patient had positive testing with 3-4 provocative maneuvers with previous office visits. Patient was rescheduled for diagnostic SIJ injec tion which was denied again. Peer to Peer Review was conducted on 04/09/[address] Cervantes and left diagnostic SIJ injection was approved. Reference #[id number]. PRIOR: Patient returns today for follow up for worsening of left sided lower back pain. She was initially seen by Tonia ESCAMILLA in November and was scheduled for diagnostic SIJ injection which unfortunately has been denied. Patient continues to endorse low back pain that travels in her left upper buttock and into left groin and intermittently into her left lower extremity laterally and anteriorly up to the knee level. She reports numbness and tingling in her left lateral leg, groin and rarely in her left foot. Patient reports she has a pending neurosurgical evaluation by Dr. Welsh at [facility] in May,. She reports her pain is increa sed with daily activities, prolonged walking, sexual activity, or laying on her back. Patient reports she continues to have difficulty to properly care for herself and cannot wipe herself properly after bowel movements due to pain exacerbation with bending forward and twisting. She is concerned about her weight gain due to decreased daily activities and pain. On exam today, patient has significant exacerbation of left sacroiliac joint pain. She has negative SLR bilaterally and only reports mild stretching discomfort with dorsiflexion on the left. Patient is interested to proceed with diagnostic left SIJ injection for potential longer term pain relief, including therapeutic injections, neuromodulation and RFA procedures. Patient denies any fever, abdominal pain, dizziness, weakness, bowel or bladder incontinence or saddle anesthesia. PRIOR 12/17/21 Tonia RANGE MANAGEMENT SPECIALIST: Fouzia a pleasant 46 year old female who presents today to the office today with complaints of low back pain. She states the pain started 5-7 years ago without any inciting events and has progressively worsened over the past two years. She reports the pain starts in the left side of her low back and radiates into the left hip/groin with intermittent numbness. She also reports occasional radiation down LLE into foot with associated pins/needles sensation. Although the symptoms are always on the left, she does report intermittent symptoms of right sided lower back pain. She denies any weakness, bowel/bladder dysfunction. She was referred to [facility] who offered some type of injection but patient declined at the time. She recently had a lumbar spine MRI, report scanned into chart. No evidence of nerve root impingement, overt foraminal/central canal stenosis, but there was a disc protrusion with abutment of the left L4 nerve root. She reports pain onset was gradual, constant and rates the pain a 5-8/10. She states the pain is interfering with sleep, activities of daily living and they cannot function normally. The patient reports the pain in terms of tissue damage as throbbing, jumping, stabbing, cramping, burning as well as heavy, tiring and radiating. The pain is exacerbated by prolonged sitting,standing as well as activity. She notes relief with recumbency. She has been taking ibuprofen with partial relief. She has also tried tizanidine, naprosyn, heat/ice and tylenol with minimal effect. With the worsening of her pain she reports weight gain due to limitations with activity. She was previously very active at the gym as well as using medical weight management, losing a total of 30 lbs. Unfortunately, due to her pain she gained the weight back despite continuing with yoga/pilates like exercises. She has attempted chiropractic manipulation as well as physical therapy and mass age in the past with partial alleviation in symptoms. Denies any acupuncture. Denies any previous back injections or surgery. Her past medical history is significant for hyperlipidemia and vitamin D deficiency. [facility] Social History Alcohol intake: current Alcohol intake frequency: holidays/special occasions only Patient Tobacco Use Status: Never used Tobacco Review of Systems Const All systems reviewed & are unremarkable except as noted in HPI and below Physical Exam Vital Signs: Last Vital Signs Pulse 79 02/18/23 09:25 BP 163/79 H 02/18/23 09:25 Pulse Ox 97 02/18/23 09:25 Oxygen Delivery Method Room Air 02/18/23 09:25 BMI result Body Mass Index 36.4 General: Appears afebrile. Alert and oriented. Mood and affect appropriate. Follows and participates in conversation appropriately. Respiratory effort is unlabored. Able to transition from sit to stand unassisted. Ambulates with bilaterally normal heel strike and toe off. Back/Spine/Pelvis Other: SI distraction, side thrust and compression positive on the left with mild TTP in the projection of left SIJ s/p recent diagnostic injection. Babar's and Gaenslen's positive. Cervical Spine: cervical ROM normal and No Cervical spine tenderness Thoracic/Lumbar Spine: thoracic and lumbar spine normal to inspection, No Thoracic/lumbar spine scar(s), Lasegue's sign negative, straight leg raise negative bilaterally, pain with thoraco-lumbar ROM, paraspinal muscle tenderness, No thoracic spinal tenderness and lumbar spinal tenderness (L4-S1) Pelvis: buttock tenderness on the left Sacroiliac joints: on the right nontender and on the left tender to palpation Assessment & Plan Assessment & Plan (1) Sacroiliitis: Code(s): M46.1 - Sacroiliitis, not elsewhere classified (2) Sacroiliac joint pain: Code(s): M53.3 - Sacrococcygeal disorders, not elsewhere classified (3) Degeneration of L4-L5 intervertebral disc: Code(s): M51.36 - Other intervertebral disc degeneration, lumbar region (4) Facet arthropathy, lumbosacral: Code(s): M47.817 - Spondylosis without myelopathy or radiculopathy, lumbosacral region (5) Muscle spasm: Code(s): M62.838 - Other muscle spasm Plan Schedule Therapeutic Left Sacroiliac Joint injection with local and fluoroscopy. Diagnostic left SIJ injection provided her 90% pain relief for 1.5 days with significant improvement in her mobility, movements, functioning and sleep. Continue acupuncture, daily stretching exercises, weight loss, and good posture. All questions and concerns have been answered and patient agreed with the plan. Follow up after injections and sooner if needed. Anticoagulation: Patient not on anticoagulant Justification for interventional therapy: ? Patient with average pain > 6/10 ? Patient has exhausted conservative therapy, NSAIDs, physical therapy, chiropractic manipulation, acupuncture, HEP The risks, consequences, alternatives, and benefits of various treatment options were discussed with the patient in great detail, including conservative management, injections and procedures. Patient was informed on hyperglycemic effects of steroids. Coding Level of Care Code Est Pt Level 3 (58307) Diagnoses Sacroiliitis M46.1 Sacroiliac joint pain M53.3 Degeneration of L4-L5 intervertebral disc M51.36 Facet arthropathy, lumbosacral M47.817 Muscle spasm M62.838
[2023-02-18 09:25] VITALS: BP 163/79; PULSE 79; O2SAT 97; BMI 36.4
== END 2023-02-18 09:38 | disposition home or self-care (01) ==
PROVIDERS: PCP Internal Medicine; Visit Provider Nurse Practitioner Family
DX: M46.1 Sacroiliitis, not elsewhere classified (principal); M53.3 Sacrococcygeal disorders, not elsewhere classified; M51.36 Other intervertebral disc degeneration, lumbar region; M47.817 Spondylosis without myelopathy or radiculopathy, lumbosacral region; M62.838 Other muscle spasm
CPT/HCPCS: 99213

== ENCOUNTER → 2023-02-18 09:18 | Outpatient (BNVA) | payer OTHER, SELFPAY | PROVIDERS: PCP Internal Medicine; Visit Provider Nurse Practitioner Family ==

== ENCOUNTER 2023-03-09 07:32 | Outpatient (REF) | payer OTHER, SELFPAY ==
--- NOTE | ~2023-03-09 | FL_ITS ---
EXAMINATION: XR FLUOROSCOPY WITH IMAGES CLINICAL INFORMATION: Sacrococcygeal disorders, not elsewhere classified. COMPARISON: None available. TECHNIQUE: Fluoroscopy Supervised By: Dr. Vish Layne. Fluoroscopy Time: 0.1 minute. Cumulative Dose: 2.09 mGy. DAP: 0.570 Gycm2. Images: 1. FINDINGS: Image demonstrates needle placement and contrast injection of the left sacroiliac joint FL/FL guidance in treatment room IMPRESSION: Fluoroscopy guidance for pain management procedure
== END 2023-03-09 07:33 | disposition home or self-care (01) ==
LOC: CF 07:32
PROVIDERS: Visit Provider Anesthesiology
DX: M53.3 Sacrococcygeal disorders, not elsewhere classified (principal); M51.36 Other intervertebral disc degeneration, lumbar region; M47.817 Spondylosis without myelopathy or radiculopathy, lumbosacral region; M62.838 Other muscle spasm; M46.1 Sacroiliitis, not elsewhere classified
CPT/HCPCS: 27096; J2795; J3301

== ENCOUNTER 2023-03-09 14:28 | Outpatient (AMB) | payer OTHER, SELFPAY ==
--- NOTE | 2023-03-09 14:52 | MHC.OFFVIS ---
Intake Vital Signs 03/09/23 15:56 03/09/23 15:57 Height 4 ft 11 in 4 ft 11 in Weight 180 lb 180 lb BMI 36.4 36.4 BP 110/68 124/64 Blood Pressure Location Rt brachial Rt brachial Position Sitting Sitting Respiration 16 16 Pulse 76 75 Pulse Source Pulse Oximeter Pulse Oximeter Pulse Oximetry (%) 97 98 Oxygen Delivery Method Room Air Room Air Comment pre-op pre-op Intake Visit Reasons: L SIJ STEROID INJ/LOCAL Allergies No Known Allergies Allergy (Verified 03/09/23 15:58) PFSH Social History Alcohol intake: current Alcohol intake frequency: holidays/special occasions only Patient Tobacco Use Status: Never used Tobacco Physical Exam Vital Signs: Last Vital Signs Pulse 75 03/09/23 15:57 Resp 16 03/09/23 15:57 BP 124/64 03/09/23 15:57 Pulse Ox 98 03/09/23 15:57 Oxygen Delivery Method Room Air 03/09/23 15:57 BMI result Body Mass Index 36.4 Assessment & Plan Assessment & Plan (1) Sacroiliitis: Code(s): M46.1 - Sacroiliitis, not elsewhere classified (2) Sacroiliac joint pain: Code(s): M53.3 - Sacrococcygeal disorders, not elsewhere classified (3) Degeneration of L4-L5 intervertebral disc: Code(s): M51.36 - Other intervertebral disc degeneration, lumbar region (4) Facet arthropathy, lumbosacral: Code(s): M47.817 - Spondylosis without myelopathy or radiculopathy, lumbosacral region (5) Muscle spasm: Code(s): M62.838 - Other muscle spasm Plan: Left therapeutic sacroiliac joint injection Informed consent was explained thoroughly to the patient.? All questions about benefits and risks for the procedure were answered. Patient came to the operating room and was positioned prone on the operating table with the pillow under her pelvis. ?[employer] monitors were applied and patient was sedated. ? Time out was performed delineating name and of the patient, site and side of the procedure, nature of the procedure and potential patient?s risks. The lower back of the patient and upper buttocks was prepped with ChloraPrep prepped and draped with sterile utility drapes.? C-arm was brought over the operating field and square picture of patient's pelvis was demonstrated on the screen.? For the - left joint tilting C-arm contralateral to the site of the joint the posterior joint silhouette was delineated on the screen. Skin projection of the joint was chosen as a target of the injection and it was injected ?slightly medial to the location of the joint with 25 gauge needle using local lidocaine 2% without epinephrine. After that 22 gauge 3 and 1/2 inch needle was driven to the joint silhouette in tunnel vision fashion.? When needle entered the joint capsule injection of the contrast was performed demonstrating intra-articular spread of the contrast.? After that 4 cc. of ropivacaine 0.5% mixed with Kenalog 40 mg was injected into the joint. Upon completion of the injections the needle was removed and sterile dressing was applied.? Upon completion of the injection patient was awaken taken outside of the operating room to the recovery room where recovered uneventfully.? Plan Schedule Therapeutic Left Sacroiliac Joint injection with local and fluoroscopy. Diagnostic left SIJ injection provided her 90% pain relief for 1.5 days with significant improvement in her mobility, movements, functioning and sleep. Continue acupuncture, daily stretching exercises, weight loss, and good posture. All questions and concerns have been answered and patient agreed with the plan. Follow up after injections and sooner if needed. Anticoagulation: Patient not on anticoagulant Justification for interventional therapy: ? Patient with average pain > 6/10 ? Patient has exhausted conservative therapy, NSAIDs, physical therapy, chiropractic manipulation, acupuncture, HEP The risks, consequences, alternatives, and benefits of various treatment options were discussed with the patient in great detail, including conservative management, injections and procedures. Patient was informed on hyperglycemic effects of steroids. Orders: Orders FL guidance in treatment room 03/09/23 M53.3 - Sacrococcygeal disorders, not elsewhere classified Coding Level of Care Code Procedure Only Diagnoses Sacroiliitis M46.1 Sacroiliac joint pain M53.3 Degeneration of L4-L5 intervertebral disc M51.36 Facet arthropathy, lumbosacral M47.817 Muscle spasm M62.838
[2023-03-09 15:56] VITALS: BP 110/68; PULSE 76; RESP 16; O2SAT 97; BMI 36.4
[2023-03-09 15:57] VITALS: BP 124/64; PULSE 75; RESP 16; O2SAT 98; BMI 36.4
== END 2023-03-09 15:20 | disposition home or self-care (01) ==
LOC: HO.PMCPRC 14:28
PROVIDERS: PCP Internal Medicine; Visit Provider Anesthesiology
DX: M46.1 Sacroiliitis, not elsewhere classified (principal); M53.3 Sacrococcygeal disorders, not elsewhere classified; M51.36 Other intervertebral disc degeneration, lumbar region; M47.817 Spondylosis without myelopathy or radiculopathy, lumbosacral region; M62.838 Other muscle spasm
CPT/HCPCS: 27096